=== PATIENT | female | born 1990 | race Caucasian/White ===

== ENCOUNTER → 2024-09-19 10:04 | Outpatient (REF) | payer OTHER, SELFPAY | LOC: WDC 10:04 | PROVIDERS: ATTENDING PHYSICIAN Hospitalist | DX: N63.42 Unspecified lump in left breast, subareolar (principal) | CPT/HCPCS: 76642 ==

== ENCOUNTER → 2024-10-03 09:37 | Outpatient (REF) | payer OTHER, SELFPAY | LOC: WDC 09:37 | PROVIDERS: ATTENDING PHYSICIAN Hospitalist | DX: N63.42 Unspecified lump in left breast, subareolar (principal) | CPT/HCPCS: 77062; 77066 ==

== ENCOUNTER → 2024-12-17 13:18 | Outpatient (REF) | payer OTHER, SELFPAY | LOC: PNTC 13:18 | PROVIDERS: ATTENDING PHYSICIAN Nurse Practitioner Family | DX: O36.80X0 Pregnancy with inconclusive fetal viability, not applicable or unspecified (principal) | CPT/HCPCS: 76801 ==

== ENCOUNTER → 2025-01-21 06:53 | Outpatient (REF) | payer OTHER, SELFPAY | LOC: PNTC 06:53 | PROVIDERS: ATTENDING PHYSICIAN Obstetrics & Gynecology | DX: Z36.0 Encounter for antenatal screening for chromosomal anomalies (principal); Z36.82 Encounter for antenatal screening for nuchal translucency | CPT/HCPCS: 36415; 76801; 76813 ==

== ENCOUNTER → 2025-02-12 13:27 | Outpatient (REF) | payer OTHER, SELFPAY | LOC: PNTC 13:27 | PROVIDERS: ATTENDING PHYSICIAN Obstetrics & Gynecology | DX: O99.210 Obesity complicating pregnancy, unspecified trimester (principal) | CPT/HCPCS: 76805 ==

== ENCOUNTER → 2025-03-13 13:37 | Outpatient (REF) | payer OTHER, SELFPAY | LOC: PNTC 13:37 | PROVIDERS: ATTENDING PHYSICIAN Obstetrics & Gynecology | DX: O99.210 Obesity complicating pregnancy, unspecified trimester (principal) | CPT/HCPCS: 76811; 76817 ==

== ENCOUNTER → 2025-04-30 13:27 | Outpatient (REF) | payer OTHER, SELFPAY | LOC: PNTC 13:27 | PROVIDERS: ATTENDING PHYSICIAN Student in an Organized Health Care Education/Training Program | DX: O99.210 Obesity complicating pregnancy, unspecified trimester (principal) | CPT/HCPCS: 76816 ==

== ENCOUNTER → 2025-05-28 15:56 | Outpatient (REF) | payer OTHER, SELFPAY | LOC: PNTC 15:56 | PROVIDERS: ATTENDING PHYSICIAN Student in an Organized Health Care Education/Training Program | DX: O99.210 Obesity complicating pregnancy, unspecified trimester (principal) | CPT/HCPCS: 76816 ==

== ENCOUNTER → 2025-06-25 14:28 | Outpatient (REF) | payer OTHER, SELFPAY | LOC: PNTC 14:28 | PROVIDERS: ATTENDING PHYSICIAN Student in an Organized Health Care Education/Training Program | DX: O99.210 Obesity complicating pregnancy, unspecified trimester (principal) | CPT/HCPCS: 59025; 76816 ==

== ENCOUNTER → 2025-07-02 15:24 | Outpatient (REF) | payer OTHER, SELFPAY | LOC: PNTC 15:24 | PROVIDERS: ATTENDING PHYSICIAN Student in an Organized Health Care Education/Training Program | DX: O99.210 Obesity complicating pregnancy, unspecified trimester (principal) | CPT/HCPCS: 59025; 76815 ==

== ENCOUNTER → 2025-07-09 15:22 | Outpatient (REF) | payer OTHER, SELFPAY | LOC: PNTC 15:22 | PROVIDERS: ATTENDING PHYSICIAN Student in an Organized Health Care Education/Training Program | DX: O99.210 Obesity complicating pregnancy, unspecified trimester (principal) | CPT/HCPCS: 36415; 59025; 76815 ==

== ENCOUNTER → 2025-07-16 15:29 | Outpatient (REF) | payer OTHER, SELFPAY | LOC: PNTC 15:29 | PROVIDERS: ATTENDING PHYSICIAN Student in an Organized Health Care Education/Training Program | DX: O99.210 Obesity complicating pregnancy, unspecified trimester (principal) | CPT/HCPCS: 59025; 76816 ==

== ENCOUNTER → 2025-07-23 15:35 | Outpatient (REF) | payer OTHER, SELFPAY | LOC: PNTC 15:35 | PROVIDERS: ATTENDING PHYSICIAN Student in an Organized Health Care Education/Training Program | DX: O99.210 Obesity complicating pregnancy, unspecified trimester (principal) | CPT/HCPCS: 59025; 76815 ==

== ENCOUNTER → 2025-07-30 15:32 | Outpatient (REF) | payer OTHER, SELFPAY | LOC: PNTC 15:32 | PROVIDERS: ATTENDING PHYSICIAN Student in an Organized Health Care Education/Training Program | DX: O99.210 Obesity complicating pregnancy, unspecified trimester (principal) | CPT/HCPCS: 59025; 76815 ==

== ENCOUNTER 2025-07-31 20:08 | Inpatient (IN) | payer OTHER, SELFPAY ==
[2025-07-31 20:46] VITALS: BP 116/73; BMI 40.8
[2025-07-31 21:11] LABS: Hematocrit 36.9 % (37.0-47.0); Hemoglobin 12.7 g/dL (12.0-16.0); Mean Corp Hgb Conc. 34.4 g/dL (33.0-37.0); Mean Corpuscular Volume 88.5 fL (81.0-99.0); Nucleated Red Blood Cells % 0 %; Platelet Count 202 10^3/uL (130-400); Red Cell Dist. Width 14.5 % (11.5-14.5)
[2025-07-31] MEDS: CYTOTEC 25 MICROGRAM VAG (21:17)
[2025-08-01] MEDS: LR 1000 IV (00:54)
[2025-08-01] MEDS: TUMS CHEWABLE TABLET 400 MG PO (01:15)
[2025-08-01] MEDS: BRETHINE 250 MCG SC (01:29)
[2025-08-01] MEDS: PITOCIN 30 UNITS/NSS 500 ML IV (01:47)
[2025-08-01] MEDS: XYLOCAINE-MPF 1% VIAL 30 ML INFIL (01:50)
[2025-08-01] MEDS: MOTRIN 600 MG PO ×3 (02:20→18:42)
[2025-08-01] MEDS: TYLENOL 650 MG PO (05:22)
[2025-08-01] MEDS: PRENATAL PLUS 1 TABLET PO (07:32)
[2025-08-01] MEDS: COLACE 100 MG PO ×2 (07:32→19:17)
[2025-08-02] MEDS: MOTRIN 600 MG PO ×2 (05:15→15:10)
[2025-08-02 06:10] LABS: Hematocrit 35.9 % (37.0-47.0); Hemoglobin 12.3 g/dL (12.0-16.0)
[2025-08-02] MEDS: PRENATAL PLUS 1 TABLET PO (09:19)
[2025-08-02] MEDS: COLACE 100 MG PO ×2 (09:19→19:18)
[2025-08-03] MEDS: MOTRIN 600 MG PO (02:49)
[2025-08-03] MEDS: PRENATAL PLUS 1 TABLET PO (08:09)
[2025-08-03] MEDS: COLACE 100 MG PO (08:09)
[2025-08-05 14:48] LABS: Syphilis/T. pallidum Ab Reflex Negative (Negative)
== END 2025-08-03 11:48 | disposition home or self-care (01) | DRG 807 ==
LOC: LDRP 20:08
PROVIDERS: ADMITTING PHYSICIAN Obstetrics & Gynecology; FAMILY PHYSICIAN Hospitalist
PROC: 3E0P7VZ Introduction of Hormone into Female Reproductive, Via Natural or Artificial Opening (ICD-10-PCS; 2025-07-31)
PROC: 10E0XZZ Delivery of Products of Conception, External Approach (ICD-10-PCS; 2025-08-01)
PROC: 0HQ9XZZ Repair Perineum Skin, External Approach (ICD-10-PCS; 2025-08-01)
DX: O48.0 Post-term pregnancy (principal); Z37.0 Single live birth; Z3A.40 40 weeks gestation of pregnancy; O70.0 First degree perineal laceration during delivery; O69.81X0 Labor and delivery complicated by cord around neck, without compression, not applicable or unspecified; O66.0 Obstructed labor due to shoulder dystocia; O77.0 Labor and delivery complicated by meconium in amniotic fluid; E78.00 Pure hypercholesterolemia, unspecified; O99.214 Obesity complicating childbirth; Z80.1 Family history of malignant neoplasm of trachea, bronchus and lung; Z80.8 Family history of malignant neoplasm of other organs or systems; Z80.51 Family history of malignant neoplasm of kidney; Z81.8 Family history of other mental and behavioral disorders; Z82.49 Family history of ischemic heart disease and other diseases of the circulatory system; Z83.3 Family history of diabetes mellitus
CPT/HCPCS: 36415; 85014; 85018; 85025; 86780; 86850; 86900; 86901; 88307